=== PATIENT | male | born 1945 | race Two or more races ===

== ENCOUNTER 2021-11-17 06:12 | Outpatient (CLI) | payer OTHER | END 2021-11-17 06:19 | disposition home or self-care (01) | LOC: LAB 06:12 | PROVIDERS: ATTEND Internal Medicine | DX: U07.1 COVID-19 (principal); B34.1 Enterovirus infection, unspecified ==

== ENCOUNTER 2021-11-17 07:08 | Outpatient (CLI) | payer OTHER | END 2021-11-17 07:15 | disposition home or self-care (01) | LOC: NUCLEAR 07:08 | PROVIDERS: ATTEND Specialist | DX: I25.9 Chronic ischemic heart disease, unspecified (principal); E78.5 Hyperlipidemia, unspecified; E11.9 Type 2 diabetes mellitus without complications; I11.9 Hypertensive heart disease without heart failure | CPT/HCPCS: 78452; 93017; A9500; J0153 ==